=== PATIENT | male | born 1985 | race Caucasian/White ===

== ENCOUNTER 2022-09-13 12:18 | Emergency (ER) | payer OTHER, SELFPAY ==
--- NOTE | ~2022-09-13 | XR_ITS ---
EXAMINATION: XR SHOULDER, RIGHT CLINICAL INFORMATION: Pain COMPARISON: None available. TECHNIQUE: Right shoulder is imaged in 3 views. FINDINGS: No fracture, dislocation, destructive process. The acromioclavicular alignment is normal. The glenohumeral joint appears normal. There are degenerative changes acromioclavicular joint. Some minor spurring is present at the lateral acromium likely related to the deltoid. The internal rotation view shows a barely perceptible punctate calcification adjacent to the greater tuberosity suggesting calcific tendinosis in region of infraspinatus. XR/XR shoulder RT min 2V IMPRESSION: - Punctate calcification adjacent to greater tuberosity suggesting calcific tendinosis in region of infraspinatus. - Degenerative changes acromioclavicular joint.
[2022-09-13 12:51] VITALS: BP 134/89; PULSE 77; RESP 20; TEMP 36.8; O2SAT 98; BMI 35.5
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
== END 2022-09-13 15:47 | disposition home or self-care (01) ==
PROVIDERS: Emergency Provider Emergency Medicine
DX: M75.21 Bicipital tendinitis, right shoulder (principal); M25.511 Pain in right shoulder
CPT/HCPCS: 73030; 99282; 99283